=== PATIENT | male | born 1950 | race Caucasian/White ===

== ENCOUNTER 2023-11-05 07:26 | Inpatient (IN) | payer OTHER ==
[~2023-11-05] VITALS: Ht 180.3 cm; Wt 77.1 kg
[2023-11-05] VITALS (12 sets, daily range): BP systolic 114–169; BP diastolic 69–109; PULSE 77–109; RESP 22–38; TEMP 98.1–98.2; O2SAT 95–100
[2023-11-05] MEDS: methylPREDNISolone SS 125 MG/2 ML VIAL IVP ONE (07:49)
[2023-11-05 08:23] LABS: EOSINOPHILS % (AUTO) 0.3 % (0.0-4.0); HEMATOCRIT 39.9 % (36-52); HEMOGLOBIN 13.2 g/dL (12.0-18.0); LYMPHOCYTES # (AUTO) 3.1 K/uL (2.0-11.5); LYMPHOCYTES % (AUTO) 28.8 % (20.5-51.1); MEAN CORPUSCULAR HEMOGLOBIN 32 pg (27-31); MEAN CORPUSCULAR HGB CONC 33 g/dL (33-37); MEAN CORPUSCULAR VOLUME 97.1 fL (80-94); MONOCYTES # (AUTO) 0.6 K/uL (0.8-1.0); MONOCYTES % (AUTO) 5.3 % (1.7-9.3); NEUTROPHILS % (AUTO) 65.6 % (42.2-75.2); PLATELET COUNT (AUTO) 173 K/uL (140-450); RED BLOOD CELL COUNT(AUTO) 4.11 MIL/uL (4.20-6.10); RED CELL DISTRIBUTION WIDTH 18.8 % (11.6-13.7); WHITE BLOOD COUNT (AUTO) 10.7 K/uL (4.8-10.8)
[2023-11-05 08:49] LABS: INR 0.93 (0.8-1.2); PROTHROMBIN TIME 9.8 secs (10.8-13.4)
[2023-11-05 08:51] LABS: PARTIAL THROMBOPLASTIN TIME 19.8 secs (22-35.6)
[2023-11-05 08:57] LABS: FLU A ANTIGEN negative (NEGATIVE); FLU B ANTIGEN negative (NEGATIVE); RSV Negative (NEGATIVE)
[2023-11-05 09:02] LABS: ANION GAP 9.6 (8-16); CALCIUM 8.2 mg/dL (8.5-10.1); CARBON DIOXIDE 32.4 mmol/L (21-32); CHLORIDE 106 mmol/L (98-107); CREATININE 0.8 mg/dL (0.6-1.3); GLUCOSE 112 mg/dL (74-106); SODIUM SERUM 144 mmol/L (136-145); UREA NITROGEN, BLOOD 29 mg/dL (7-18)
[2023-11-05 09:05] LABS: ALANINE AMINOTRANSFERASE 40 U/L (12-78); ALBUMIN 2.7 g/dL (3.4-5.0); ALKALINE PHOSPHATASE 72 U/L (50-136); ASPARTATE AMINOTRANSFERASE 14 U/L (15-37); BILIRUBIN,DIRECT 0.1 mg/dL (0.0-0.3); LACTIC ACID 2.1 mmol/L (0.4-2.0); PHOSPHORUS 3.5 mg/dL (2.5-4.9); TOTAL BILIRUBIN 0.5 mg/dL (0.0-1.0); TOTAL PROTEIN, SERUM 5.8 g/dL (6.4-8.2)
[2023-11-05] MEDS ORDERED: ALBUTEROL 0.083% 2.5 MG/3 ML NEBU INH ONE (09:24)
[2023-11-05] MEDS ORDERED: IPRATROPIUM 0.02% 0.5 MG/2.5 ML NEBU INH ONE (09:24)
[2023-11-05] MEDS: ALBUTEROL 0.083% 2.5 MG/3 ML NEBU INH ONE (09:25)
[2023-11-05] MEDS: IPRATROPIUM 0.02% 0.5 MG/2.5 ML NEBU INH ONE (09:25)
[2023-11-05 10:03] LABS: BLOOD GAS BASE EXCESS 1.8 mmol/L (-2.0-2.0); BLOOD GAS HCO3 26.3 mmol/L (22-26); BLOOD GAS PH 7.425 (7.35-7.45); BLOOD GAS PO2 208.4 mmHg (75-100)
[2023-11-05 10:04] LABS: BLOOD GAS O2 SAT% 99.6 % (92.0-98.5)
[2023-11-05] MEDS ORDERED: AMIO100T3 PO (11:47)
[2023-11-05] MEDS ORDERED: BUSP-83 PO (11:47)
[2023-11-05] MEDS ORDERED: PRED20TA5 PO (11:47)
[2023-11-05] MEDS ORDERED: TAMS0.4C96 PO (11:47)
[2023-11-05] MEDS ORDERED: [UNRECOGNIZED DRUG - CODE] IH (11:47)
[2023-11-05] MEDS ORDERED: ASPI-1822 PO (11:47)
[2023-11-05] MEDS ORDERED: METO25TA PO (11:47)
[2023-11-05] MEDS ORDERED: SPIR50TA PO (11:47)
[2023-11-05] MEDS ORDERED: DOCU-299 PO (11:47)
[2023-11-05] MEDS ORDERED: ATOR10TA PO (11:47)
[2023-11-05] MEDS ORDERED: FINA-54 PO (11:47)
[2023-11-05] MEDS ORDERED: CLOP75TA55 PO (11:47)
[2023-11-05] MEDS ORDERED: ACET-2619 PO (11:47)
[2023-11-05] MEDS ORDERED: POLYETHYLENE GLYCOL 17 GM/PKT PO PRN (12:15)
[2023-11-05] MEDS ORDERED: MAG SULF 2000 MG/WATER PREMIX 50 ML IV PRN (12:15)
[2023-11-05] MEDS ORDERED: POTASSIUM CHLORIDE 10 MEQ TABER PO PRN (12:15)
[2023-11-05] MEDS ORDERED: ONDANSETRON 4 MG/2 ML VIAL IVP PRN (12:15)
[2023-11-05] MEDS ORDERED: HYDROcodone/APAP 5/325 MG 1 TAB TAB PO PRN (12:15)
[2023-11-05] MEDS ORDERED: MELATONIN 3 MG TAB PO PRN (12:15)
[2023-11-05] MEDS ORDERED: MORPHINE SULFATE 2 MG/ML SYR IVP PRN (12:15)
[2023-11-05] MEDS ORDERED: ACETAMINOPHEN 325 MG TAB PO PRN (12:15)
[2023-11-05] MEDS ORDERED: ALBUTEROL 0.083% 2.5 MG/3 ML NEBU INH PRN (12:30)
[2023-11-05] MEDS ORDERED: IPRATROPIUM 0.02% 0.5 MG/2.5 ML NEBU INH PRN (12:30)
[2023-11-05] MEDS ORDERED: AZITHROMYCIN 500 MG INJ VIAL IV ONE (13:12)
[2023-11-05] MEDS: busPIRone 5 MG TAB PO SCH (13:16)
[2023-11-05] MEDS: AZITHROMYCIN 500 MG in DEXTROSE 5% 250 ML IV SCH (13:16)
[2023-11-05] MEDS: methylPREDNISolone SS 40 MG/ML VIAL IVP SCH (18:38)
[2023-11-05] MEDS ORDERED: TAMSULOSIN 0.4 MG CAP PO SCH (21:00)
[2023-11-05] MEDS ORDERED: METOPROLOL 25 MG TAB PO SCH (21:00)
[2023-11-05] MEDS ORDERED: ATORVASTATIN 20 MG TAB PO SCH (21:00)
[2023-11-05] MEDS ORDERED: methylPREDNISolone SS 40 MG/ML VIAL IVP SCH (21:00)
[2023-11-06] VITALS (12 sets, daily range): BP systolic 108–151; BP diastolic 72–96; PULSE 72–104; RESP 18–33; TEMP 97.7–98.2; O2SAT 94–100
[2023-11-06] MEDS ORDERED: ASPIRIN 81 MG TAB.CHEW PO SCH (09:00)
[2023-11-06] MEDS ORDERED: FINASTERIDE 5 MG TAB PO SCH (09:00)
[2023-11-06] MEDS ORDERED: AMIODARONE 200 MG TAB PO SCH (09:00)
[2023-11-06] MEDS ORDERED: CLOPIDOGREL 75 MG TAB PO SCH (09:00)
[2023-11-06] MEDS ORDERED: AMIODARONE HCL PO SCH (09:00)
[2023-11-06] MEDS ORDERED: SPIRONOLACTONE 50 MG TAB PO SCH (09:00)
[2023-11-06 13:09] LABS: BLOOD GAS BASE EXCESS 2.3 mmol/L (-2.0-2.0); BLOOD GAS PCO2 33.2 mmHg (35-45); BLOOD GAS PH 7.495 (7.35-7.45); BLOOD GAS PO2 60.8 mmHg (75-100)
[2023-11-06 13:10] LABS: BLOOD GAS O2 SAT% 92.1 % (92.0-98.5)
[2023-11-06] MEDS: LEVALBUTEROL 1.25 MG/0.5 ML NEBU INH PRN (13:59)
[2023-11-06] MEDS ORDERED: LEVOFLOXACIN 500 MG/D5W PREMIX 100 ML IV SCH (14:35)
[2023-11-06] MEDS ORDERED: ALBUTEROL 0.083% 2.5 MG/3 ML NEBU INH PRN (14:35)
[2023-11-06] MEDS: MORPHINE SULFATE 2 MG/ML SYR IVP PRN (17:21)
[2023-11-06] MEDS ORDERED: BUDESONIDE 0.5 MG/2 ML NEBU INH SCH (19:30)
[2023-11-07] VITALS (14 sets, daily range): BP systolic 108–152; BP diastolic 72–136; PULSE 68–136; RESP 18–24; TEMP 97–97.8; O2SAT 92–100
[2023-11-07] MEDS: AZITHROMYCIN 250 MG TAB PO SCH (10:37)
[2023-11-07] MEDS ORDERED: AZITHROMYCIN 250 MG TAB PO SCH (11:00)
[2023-11-07] MEDS: ALBUTEROL SULFATE/IPRATROPIU 3 ML SOL IH ONE (19:15)
[2023-11-07] MEDS: DILTIAZEM 25 MG/5 ML VIAL IVP ONE (20:26)
[2023-11-08] VITALS (16 sets, daily range): BP systolic 122–151; BP diastolic 76–98; PULSE 71–137; RESP 20–28; TEMP 96.9–98; O2SAT 94–99
[2023-11-08 05:53] LABS: HEMATOCRIT 37.4 % (36-52); HEMOGLOBIN 12.5 g/dL (12.0-18.0); LYMPHOCYTES # (AUTO) 0.3 K/uL (2.0-11.5); LYMPHOCYTES % (AUTO) 3.3 % (20.5-51.1); MEAN CORPUSCULAR HEMOGLOBIN 32 pg (27-31); MEAN CORPUSCULAR HGB CONC 33 g/dL (33-37); MEAN CORPUSCULAR VOLUME 96.6 fL (80-94); MONOCYTES # (AUTO) 0.3 K/uL (0.8-1.0); MONOCYTES % (AUTO) 3.5 % (1.7-9.3); NEUTROPHILS # (AUTO) 7.7 K/uL (1.8-7.7); NEUTROPHILS % (AUTO) 93.2 % (42.2-75.2); PLATELET COUNT (AUTO) 151 K/uL (140-450); RED BLOOD CELL COUNT(AUTO) 3.88 MIL/uL (4.20-6.10); RED CELL DISTRIBUTION WIDTH 18.7 % (11.6-13.7); WHITE BLOOD COUNT (AUTO) 8.3 K/uL (4.8-10.8)
[2023-11-08 06:28] LABS: ALANINE AMINOTRANSFERASE 40 U/L (12-78); ALBUMIN 2.6 g/dL (3.4-5.0); ALKALINE PHOSPHATASE 57 U/L (50-136); ANION GAP 10.5 (8-16); ASPARTATE AMINOTRANSFERASE 15 U/L (15-37); CALCIUM 8.8 mg/dL (8.5-10.1); CARBON DIOXIDE 33.9 mmol/L (21-32); CHLORIDE 105 mmol/L (98-107); CREATININE 1.2 mg/dL (0.6-1.3); GLUCOSE 122 mg/dL (74-106); MAGNESIUM 2.3 mg/dL (1.8-2.4); POTASSIUM 4.4 mmol/L (3.5-5.1); SODIUM SERUM 145 mmol/L (136-145); TOTAL BILIRUBIN 0.3 mg/dL (0.0-1.0); TOTAL PROTEIN, SERUM 5.5 g/dL (6.4-8.2); UREA NITROGEN, BLOOD 44 mg/dL (7-18)
[2023-11-08] MEDS: MUPIROCIN CA NASAL 2% 1GM TUBE NS SCH (08:14)
[2023-11-08] MEDS ORDERED: AZIT250T11 PO ×2 (09:05→17:39)
[2023-11-08] MEDS ORDERED: PRED20TA5 PO ×2 (09:05→17:39)
[2023-11-08] MEDS: CHLORHEXADINE GLUC 2% CLOTH TP SCH (09:06)
== END 2023-11-08 19:25 | disposition home or self-care (01) | DRG 189 ==
LOC: MED 07:26 → MMU 10:58 → MTU 17:47
PROVIDERS: ADMIT Internal Medicine; ATTEND Internal Medicine
PROC: 5A09357 Assistance with Respiratory Ventilation, Less than 24 Consecutive Hours, Continuous Positive Airway Pressure (ICD-10-PCS; principal; 2023-11-05)
PROC: 5A09357 Assistance with Respiratory Ventilation, Less than 24 Consecutive Hours, Continuous Positive Airway Pressure (ICD-10-PCS; 2023-11-06)
PROC: 5A09357 Assistance with Respiratory Ventilation, Less than 24 Consecutive Hours, Continuous Positive Airway Pressure (ICD-10-PCS; 2023-11-07)
PROC: 5A09357 Assistance with Respiratory Ventilation, Less than 24 Consecutive Hours, Continuous Positive Airway Pressure (ICD-10-PCS; 2023-11-08)
DX: J96.21 Acute and chronic respiratory failure with hypoxia (principal); I50.43 Acute on chronic combined systolic (congestive) and diastolic (congestive) heart failure; J44.1 Chronic obstructive pulmonary disease with (acute) exacerbation; R64 Cachexia; J96.22 Acute and chronic respiratory failure with hypercapnia; I11.0 Hypertensive heart disease with heart failure; I27.20 Pulmonary hypertension, unspecified; Z20.822 Contact with and (suspected) exposure to COVID-19; I25.10 Atherosclerotic heart disease of native coronary artery without angina pectoris; E78.5 Hyperlipidemia, unspecified; I48.91 Unspecified atrial fibrillation; Z79.01 Long term (current) use of anticoagulants; Z88.0 Allergy status to penicillin; Z79.899 Other long term (current) drug therapy; Z79.82 Long term (current) use of aspirin; Z68.23 Body mass index [BMI] 23.0-23.9, adult
CPT/HCPCS: 36415; 36600; 71045; 71275; 80048; 80053; 80076; 82803; 83605; 83735; 83880; 84100; 84484; 85025; 85610; 85730; 87040; 87081; 87420; 93005; 94640; 94660; 96374; 96375; 99285; J0456; J2270; J2920; J2930; J3490; J7060; J7612; J7613; J7644; Q0092; Q9967